=== PATIENT | male | born 2005 | race Caucasian/White ===

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

== ENCOUNTER 2023-01-21 11:13 | Outpatient (CLI) | payer OTHER | END 2023-01-21 11:14 | disposition home or self-care (01) | LOC: MADRAD 11:13 | PROVIDERS: ATTEND Physician Assistant | DX: M41.9 Scoliosis, unspecified (principal) | CPT/HCPCS: 72081 ==

== ENCOUNTER 2025-03-17 20:47 | Emergency (ER) | payer BC, SELFPAY | END 2025-03-17 22:18 | disposition home or self-care (01) | LOC: MADERS 20:47 | DX: S50.11XA Contusion of right forearm, initial encounter (principal); S60.012A Contusion of left thumb without damage to nail, initial encounter; M25.532 Pain in left wrist; F17.290 Nicotine dependence, other tobacco product, uncomplicated; V89.2XXA Person injured in unspecified motor-vehicle accident, traffic, initial encounter | CPT/HCPCS: 99284 ==

== ENCOUNTER 2025-04-18 10:57 | Emergency (ER) | payer SELFPAY ==
[2025-04-18] MEDS ORDERED: Bacitracin 1 PK ONE (11:31)
[2025-04-18] MEDS ORDERED: Cephalexin 500 MG CAP ONE (11:31)
[2025-04-18] MEDS ORDERED: Lidocaine 1% PF 5 ML VIAL ONE (11:56)
== END 2025-04-18 12:20 | disposition home or self-care (01) ==
LOC: MADERS 10:57
DX: S61.411A Laceration without foreign body of right hand, initial encounter (principal); F17.290 Nicotine dependence, other tobacco product, uncomplicated; Z23 Encounter for immunization; Z79.899 Other long term (current) drug therapy; Z79.2 Long term (current) use of antibiotics; W26.8XXA Contact with other sharp object(s), not elsewhere classified, initial encounter
CPT/HCPCS: 12001; 90471; 90715